=== PATIENT | female | born 1930 | race Two or more races ===

== ENCOUNTER 2016-05-26 12:48 | Observation (INO) | payer MEDICARE, OTHER ==
[~2016-05-26] VITALS: Ht 170.2 cm; Wt 65.0 kg
--- NOTE | 2016-05-26 12:52 | ERA ---
ER Documentation Chief Complaint Date/Time DATE: 05/26/16 TIME: 12:52 Chief Complaint Fall HPI The patient is an 85-year-old female, presenting to the ER because she fell, however she did not remember what happened. She complains of back pain. She was seen by her orthopedist today for left wrist fracture, who sent her to the ER for further evaluation. She complains of vague headache, denies chest pain, dyspnea, abdominal pain, vomiting, dysuria, diarrhea. She does not smoke nor drink. She is a very poor historian and unable to provide much history Past medical history: According to the medication, she has dyslipidemia, Parkinson disease, anxiety, diabetes mellitus Past surgical history: Unable to obtain due to her condition ROS All systems reviewed and are negative except as per history of present illness. Medications Home Meds Reported Medications Clonazepam* (Clonazepam*) 1 Mg Tablet, 1 MG PO DAILY Y for ANXIETY, TAB 05/26/16 Dorzolamide-Timolol* (Cosopt*) 2%-0.5% - 10 Ml Soln, 1 DROP BOTH EYES BID, BOTTLE 05/26/16 Linaclotide (LINZESS) 145 Mcg Capsule, 145 MCG PO BID, #30 CAP 05/26/16 Ramipril (Ramipril) 10 Mg Capsule, 10 MG PO BID, CAP 05/26/16 Pravastatin Sodium* (Pravastatin Sodium*) 20 Mg Tablet, 20 MG PO HS, TAB 05/26/16 Carbidopa/Levodopa (CARBIDOPA-LEVO 10-100 MG ODT) 1 Each Tab.rapdis, 1 TAB PO TID, #90 TAB 05/26/16 Metformin Hcl* (Metformin Hcl*) 500 Mg Tablet, 500 MG PO WITH BREAKFAST, #30 TAB 05/26/16 Fenofibrate Nanocrystallized* (Fenofibrate*) 145 Mg Tablet, 145 MG PO DAILY, TAB 05/26/16 Allergies Allergies: Coded Allergies: No Known Allergy (Unverified , 05/26/16) Physical Exam Vitals Vital Signs Date Time Temp Pulse Resp B/P Pulse Ox O2 Delivery O2 Flow Rate FiO2 05/26/16 12:57 98.2 67 18 144/63 98 Physical Exam Const: No acute distress. Head: Atraumatic. Eyes: Normal Conjunctiva. ENT: Normal External Ears, Nose and Mouth. Neck: Full range of motion. No meningismus. Resp: Clear to auscultation bilaterally. Cardio: Regular rate and rhythm, no murmurs. Abd: Soft, non distended, normal bowel sounds, non tender. Skin: No petechiae or rashes. Back: Vague and mild tenderness at thoracic and lumbar spine, no crepitus Ext: No cyanosis, or edema. Neur: Awake and alert. No focal deficit Psych: Limited due to condition Result Diagram: 05/26/16 1335 05/26/16 1335 Results 24 hrs Laboratory Tests Test 05/26/16 13:35 White Blood Count 8.210^3/ul Red Blood Count 4.5310^6/ul Hemoglobin 13.2g/dl Hematocrit 41.7% Mean Corpuscular Volume 92.1fl Mean Corpuscular Hemoglobin 29.1pg Mean Corpuscular Hemoglobin Concent 31.7g/dl Red Cell Distribution Width 14.6% Platelet Count 28664^3/UL Mean Platelet Volume 11.8fl Neutrophils % 70.4% Lymphocytes % 18.8% Monocytes % 9.3% Eosinophils % 0.9% Basophils % 0.5% Nucleated Red Blood Cells % 0.0/100WBC Neutrophils # 5.810^3/ul Lymphocytes # 1.510^3/ul Monocytes # 0.810^3/ul Eosinophils # 0.110^3/ul Basophils # 0.010^3/ul Nucleated Red Blood Cells # 0.010^3/ul Prothrombin Time 13.0Sec Prothrombin Time Ratio 1.0 INR International Normalized Ratio 0.98 Activated Partial Thromboplast Time 28.6Sec Sodium Level 140mmol/L Potassium Level 4.1mmol/L Chloride Level 109mmol/L Carbon Dioxide Level 23mmol/L Anion Gap 12 Blood Urea Nitrogen 24mg/dl Creatinine 0.64mg/dl Glucose Level 104mg/dl Calcium Level 10.1mg/dl Troponin I < 0.012ng/ml Procedures/MDM EKG: Read by emergency physician Rate/Rhythm: Normal Sinus Rhythm 75 beats/min QRS, ST, T-waves: No ST elevation, sinus arrhythmia, nonspecific T abnormality, prolonged QT Impression: Abnormal EKG [place] [id number] Radiology Main Line: [phone] DIAGNOSTIC IMAGING REPORT Patient: MISAEL PACHECO : 1930 Age: 85 Sex: F MR #: [id number] DOS: 05/26/16 1311 Ordering MD: JENNY JEAN MD Location: E/R Room/Bed: PROCEDURE: CT thoracic spine without contrast. CLINICAL INDICATION: Back pain TECHNIQUE: CT of the thoracic spine without contrast was performed on a multidetector CT scanner, with multiplanar reformats. One or more of the following dose reduction techniques were used: Automated exposure control, adjustment in mA and / or kV according to patient size, use of iterative reconstructive technique. CTDIvol = 18 mGy and DLP = 707 mGy-cm. COMPARISON: None available. FINDINGS: There is a moderate compression deformity of T11 with minimal of the posterior cortex, and minimal compression deformity of the superior endplate of T5. These appear chronic in nature. No definite acute thoracic spine fracture or dislocation is identified. There is exaggeration of the kyphosis of the thoracic spine. Alignment is grossly intact. The rest of the vertebral bodies appear grossly maintained in height. There is generalized osteopenia. There is anterior spondylosis seen at T3-4 through T10-11. There is disk space narrowing at T2-3 to T9-10, more pronounced, moderate - severe at T6-7 through T9-10. There are vacuum disk changes, more notably at T9-10 and T10-11. No significant disk bulge or herniation is seen. Facet arthropathy is seen at T5- 6 through T10-11. No central canal stenosis or foraminal narrowing is identified. There are chronic fractures / post-traumatic deformities of the right 8th through 11th ribs posteriorly. Large hiatal hernia, slightly hyperdense exophytic lesion at the upper pole of the right kidney measuring 1.8 cm which may be a hemorrhagic cyst, atherosclerotic calcifications, partially imaged large cystic lesion in the left lobe of the liver measuring up to approximately 5.5 cm with adjacent punctate calcifications are noted. Also seen are calcified mediastinal node, tiny right upper lobe calcified node/granuloma. IMPRESSION: 1. Chronic-appearing moderate T11, and minimal T5 compression deformities. 2. No definite acute thoracic spine fracture/dislocation. 3. Thoracic spondylosis. 4. Osteopenia. RPTAT: VV .Renato Enciso MD, Date Time Electronically viewed and signed by .Renato Enciso MD, MD on 05/26/2016 15:33 .O/ CC: JENNY JEAN MD [place] [id number] Radiology Main Line: [phone] DIAGNOSTIC IMAGING REPORT Patient: MISAEL PACHECO : 1930 Age: 85 Sex: F MR #: [id number] DOS: 05/26/16 1311 Ordering MD: JENNY JEAN MD Location: E/R Room/Bed: PROCEDURE: CT lumbar spine without contrast. CLINICAL INDICATION: Back pain TECHNIQUE: CT of the lumbar spine without contrast was performed on a multidetector CT scanner, with multiplanar reformats. One or more of the following dose reduction techniques were used: Automated exposure control, adjustment in mA and / or kV according to patient size, use of iterative reconstructive technique. CTDIvol = 21 mGy and DLP = 619 mGy-cm. COMPARISON: None available. FINDINGS: No lumbar spine fracture or dislocation is identified. There is mild upper lumbar dextroconvex scoliosis with preservation of the lordosis of the lumbar spine. Alignment is otherwise intact. The vertebral bodies are maintained in height. Anterior spondylosis is seen at L2-3, L4-5, L5-S1. Partially reimaged is a chronic posterior right 11th rib fracture, and cystic lesion in the left lobe of the liver with adjacent punctate calcification. Atherosclerotic calcifications are noted. T12-L1: The disc is maintained in height. No disk bulge or herniation is seen. There is no central canal stenosis or foraminal narrowing. L1-L2: The disc is maintained in height. There is a small Schmorl node. There is no central canal stenosis or foraminal narrowing. L2-L3: There is disk space narrowing, moderate - severe on the left with vacuum changes. There is posterior disk bulging and ligamentum flavum hypertrophy. No significant central canal stenosis is identified. There is mild bilateral foraminal narrowing. L3-L4: The disc is maintained in height. There is a small Schmorl node. There is posterior disk bulging and ligamentum flavum hypertrophy without significant central canal stenosis or foraminal narrowing identified. L4-L5: There is moderate - severe disk space narrowing and vacuum changes. There is posterior disk bulging and mild facet arthropathy with ligamentum hypertrophy. No significant central canal stenosis is identified . There is mild-moderate right foraminal narrowing. L5-S1: There is posterior disk bulging and mild facet arthropathy. No central canal stenosis is identified. There is mild left foraminal narrowing. IMPRESSION: 1. No lumbar spine fracture/dislocation identified. 2. Lumbar spondylosis with mild dextroconvex lumbar scoliosis. 3. Multilevel foraminal narrowing outlined in detail above. 4. Osteopenia. RPTAT: VV .Renato Enciso MD, MD Date Time Electronically viewed and signed by .Renato Enciso MD, MD on 05/26/2016 15:30 .O/ CC: JENNY JEAN MD [place] [id number] Radiology Main Line: [phone] DIAGNOSTIC IMAGING REPORT Patient: MISAEL PACHECO : 1930 Age: 85 Sex: F MR #: [id number] DOS: 05/26/16 1311 Ordering MD: JENNY JEAN MD Location: E/R Room/Bed: PROCEDURE: CT cervical spine without contrast. CLINICAL INDICATION: Neck pain TECHNIQUE: CT of the cervical spine without contrast was performed on a multidetector CT scanner, with multiplanar reformats. One or more of the following dose reduction techniques were used: Automated exposure control, adjustment in mA and / or kV according to patient size, use of iterative reconstructive technique. CTDIvol = 22 mGy and DLP = 573 mGy-cm. COMPARISON: None available. FINDINGS: There is generalized osteopenia. No cervical spine fracture or dislocation is identified. There is exaggeration of the lordosis of the cervical spine. There is minimal 1 mm retrolisthesis of C3 on C4 and 1 mm anterolisthesis of C7 on T1. Cervical vertebral bodies are grossly maintained in height. There are anterior atlantoaxial joint degenerative changes and anterior spondylosis at C4- 5 through C6-7. Atherosclerotic calcifications are noted. C2-3: There is moderate - severe disk space and posteriorly. There is posterior disk osteophyte. No central canal stenosis is identified . There is facet arthropathy without foraminal narrowing identified. C3-4: There is moderate - severe disk space and posteriorly. There is a posterior disk/osteophyte. Mild central canal stenosis is identified. There are uncovertebral osteophytes and facet arthropathy with mild-moderate right, mild left foraminal narrowing. C4-5: There is moderate - severe disk space narrowing with vacuum changes. There is a posterior disk/osteophyte and ligamentum flavum hypertrophy with mild central canal stenosis identified. There are uncovertebral osteophytes and facet arthropathy with mild-moderate right foraminal narrowing. C5-6: There is severe disk space narrowing, vacuum changes. There is a posterior disk/osteophyte and ligamentum flavum hypertrophy. Mild central canal stenosis is identified. There are uncovertebral osteophytes and facet arthropathy with mild to moderate bilateral foraminal narrowing. C6-7: There is moderate - severe disk space narrowing, vacuum changes. There is a posterior disk/osteophyte and ligamentum flavum hypertrophy. Mild central canal stenosis is identified There are uncovertebral osteophytes and facet arthropathy with mild-moderate right, mild left foraminal narrowing. C7-T1: No disk bulge or herniation is seen. There is facet arthropathy. There is no central canal stenosis or foraminal narrowing. IMPRESSION: 1. No cervical spine fracture/dislocation identified. 2. Cervical spondylosis, with multilevel mild central canal stenoses, and multilevel foraminal narrowing outlined in detail above. 3. Osteopenia. .Renato Enciso MD, Date Time Electronically viewed and signed by .Renato Enciso MD, on 05/26/2016 15:23 .O/ CC: JENNY JEAN MD [place] [address] Radiology Main Line: [phone] DIAGNOSTIC IMAGING REPORT Patient: MISAEL PACHECO : 1930 Age: 85 Sex: F MR #: [id number] DOS: 05/26/16 1311 Ordering MD: JENNY JEAN MD Location: E/R Room/Bed: PROCEDURE: CT Brain without contrast. CLINICAL INDICATION: Syncope TECHNIQUE: CT scan of the brain was performed on a multidetector high- resolution CT scan. Axial imaging was obtained of the brain without contrast administration. Coronal and sagittal reformatted images were obtained from the axial source images. Standard CT scan of the head without contrast protocols were performed. The total exam CTDI equals 43.77 mGy and the total exam DLP equals 720.23 mGy- cm. One or more of the following dose reduction techniques were used: - Automated exposure control. - Adjustment of the mA and/or kV according to patient size. Use of iterative reconstruction technique. COMPARISON: None. FINDINGS: There is a surgical staple line seen along the posterior lateral left scalp. No other foreign bodies. No evidence of calvarial fractures. The ventricular system is normal in size without midline shift. There is moderate generalized cerebral volume loss. There is mild generalized cerebellar volume loss. Negative for intracranial masses hemorrhages or midline shift. There is mild nonspecific periventricular deep white matter changes consistent with chronic microvascular ischemic disease. There is a small air fluid level within the right maxillary sinus consistent with acute sinusitis. Additional mild mucosal thickening involving the right maxillary sinus consistent with chronic sinusitis. Remainder the paranasal sinuses visualized are unremarkable. There is a right mastoiditis. The left mastoid is unremarkable. IMPRESSION: 1. Moderate generalized cerebral and mild generalized cerebral volume loss and mild nonspecific chronic microvascular ischemic disease. 2. Negative for intracranial masses hemorrhages or midline shift. 3. Chronic and acute right maxillary sinusitis. 4. Right mastoiditis. 5. 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 RPTAT:AAJJ Physician Sindi Date Time Electronically viewed and signed by Maria Antonia Sutton Physician on 05/26/2016 14:59 BM/ CC: JENNY JEAN MD MEDICAL MAKING DECISION: The patient is a 85-year-old female, presenting to the ER because of acute syncope of unclear etiology, acute back pain most likely due to the fall. The differential diagnoses considered include but are not limited to bradyarrhythmia, tachyarrhythmias, aortic outflow obstruction, neurogenic including subarachnoid hemorrhage, orthostatic hypotension and all of its causes, hypoglycemia, dysautonomia, medications, vertebral fracture/ sprain/contusion. Departure Diagnosis: Primary Impression: Syncope Additional Impression: Back pain Condition: Stable Comments I discussed the findings with the patient. I discussed the patient with the hospitalist Dr. Duvall who was made aware of the lab, the treatment, the patient condition. The patient is admitted to 3:50 PM telemetry for 24 hours observation JENNY JEAN MD May 26, 2016 12:52
[2016-05-26 13:41] LABS: ADD SCAN DIFF NO
[2016-05-26 13:46] LABS: BASOPHILS % 0.5 % (0.0-2.0); EOSINOPHILS # 0.1 10^3/ul (0.0-0.5); EOSINOPHILS % 0.9 % (0.0-7.0); HEMATOCRIT 41.7 % (37.0-47.0); HEMOGLOBIN 13.2 g/dl (12.0-16.0); LYMPHOCYTES # 1.5 10^3/ul (0.8-2.9); LYMPHOCYTES % 18.8 % (15.0-51.0); MEAN CORPUSCULAR HEMOGLOBIN 29.1 pg (29.0-33.0); MEAN CORPUSCULAR HGB CONC 31.7 g/dl (32.0-37.0); MEAN CORPUSCULAR VOLUME 92.1 fl (82.0-101.0); MEAN PLATELET VOLUME 11.8 fl (7.4-10.4); MONOCYTE # 0.8 10^3/ul (0.3-0.9); MONOCYTES % 9.3 % (0.0-11.0); NEUTROPHIL # 5.8 10^3/ul (1.6-7.5); NEUTROPHILS % 70.4 % (39.0-77.0); PLATELET COUNT 177 10^3/UL (140-415); RED BLOOD COUNT 4.53 10^6/ul (4.20-5.40); RED CELL DISTRIBUTION WIDTH 14.6 % (11.5-14.5); WHITE BLOOD COUNT 8.2 10^3/ul (4.8-10.8)
[2016-05-26 13:57] LABS: INR 0.98; PARTIAL THROMBOPLASTIN TIME 28.6 Sec (25.0-35.0)
--- NOTE | 2016-05-26 15:00 | RADRPT ---
PROCEDURE: CT Brain without contrast. CLINICAL INDICATION: Syncope TECHNIQUE: CT scan of the brain was performed on a multidetector high-resolution CT scan. Axial im aging was obtained of the brain without contrast administration. Coronal and sagittal reformatted i mages were obtained from the axial source images. Standard CT scan of the head without contrast prot ocols were performed. The total exam CTDI equals 43.77 mGy and the total exam DLP equals 720.23 mGy-cm. One or more of the following dose reduction techniques were used: - Automated exposure control. - Adjustment of the mA and/or kV according to patient size. Use of iterative reconstruction technique. COMPARISON: None. FINDINGS: There is a surgical staple line seen along the posterior lateral left scalp. No other foreign barbara s. No evidence of calvarial fractures. The ventricular system is normal in size without midline sh ift. There is moderate generalized cerebral volume loss. There is mild generalized cerebellar volu me loss. Negative for intracranial masses hemorrhages or midline shift. There is mild nonspecific periventricular deep white matter changes consistent with chronic microvascular ischemic disease. T here is a small air fluid level within the right maxillary sinus consistent with acute sinusitis. A dditional mild mucosal thickening involving the right maxillary sinus consistent with chronic sinusi tis. Remainder the paranasal sinuses visualized are unremarkable. There is a right mastoiditis. T he left mastoid is unremarkable. IMPRESSION: 1. Moderate generalized cerebral and mild generalized cerebral volume loss and mild nonspecific chr onic microvascular ischemic disease. 2. Negative for intracranial masses hemorrhages or midline shift. 3. Chronic and acute right maxillary sinusitis. 4. Right mastoiditis. 5. 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 RPTAT:AAJJ Physician Sindi Date Time Electronically viewed and signed by Physician Sindi on 05/26/2016 14:59 BM/
--- NOTE | 2016-05-26 15:23 | RADRPT ---
PROCEDURE: CT cervical spine without contrast. CLINICAL INDICATION: Neck pain TECHNIQUE: CT of the cervical spine without contrast was performed on a multidetector CT scanner, w ith multiplanar reformats. One or more of the following dose reduction techniques were used: Automa rob exposure control, adjustment in mA and / or kV according to patient size, use of iterative recon structive technique. CTDIvol = 22 mGy and DLP = 573 mGy-cm. COMPARISON: None available. FINDINGS: There is generalized osteopenia. No cervical spine fracture or dislocation is identified. There is exaggeration of the lordosis of the cervical spine. There is minimal 1 mm retrolisthesis of C3 on C4 and 1 mm anterolisthesis of C7 on T1. Cervical vertebral bodies are grossly maintained in height . There are anterior atlantoaxial joint degenerative changes and anterior spondylosis at C4-5 thro ugh C6-7. Atherosclerotic calcifications are noted. C2-3: There is moderate - severe disk space and posteriorly. There is posterior disk osteophyte. N o central canal stenosis is identified . There is facet arthropathy without foraminal narrowing julio cesar ntified. C3-4: There is moderate - severe disk space and posteriorly. There is a posterior disk/osteophyte. Mild central canal stenosis is identified. There are uncovertebral osteophytes and facet arthropat hy with mild-moderate right, mild left foraminal narrowing. C4-5: There is moderate - severe disk space narrowing with vacuum changes. There is a posterior dis k/osteophyte and ligamentum flavum hypertrophy with mild central canal stenosis identified. There a re uncovertebral osteophytes and facet arthropathy with mild-moderate right foraminal narrowing. C5-6: There is severe disk space narrowing, vacuum changes. There is a posterior disk/osteophyte an d ligamentum flavum hypertrophy. Mild central canal stenosis is identified. There are uncovertebra l osteophytes and facet arthropathy with mild to moderate bilateral foraminal narrowing. C6-7: There is moderate - severe disk space narrowing, vacuum changes. There is a posterior disk/o steophyte and ligamentum flavum hypertrophy. Mild central canal stenosis is identified There are un covertebral osteophytes and facet arthropathy with mild-moderate right, mild left foraminal narrowin g. C7-T1: No disk bulge or herniation is seen. There is facet arthropathy. There is no central canal stenosis or foraminal narrowing. IMPRESSION: 1. No cervical spine fracture/dislocation identified. 2. Cervical spondylosis, with multilevel mild central canal stenoses, and multilevel foraminal narr owing outlined in detail above. 3. Osteopenia. .Renato Enciso MD, Date Time Electronically viewed and signed by .Renato Enciso MD, MD on 05/26/2016 15:23 .O/
[2016-05-26 15:27] LABS: CHLORIDE 109 mmol/L (97-110); POTASSIUM 4.1 mmol/L (3.5-5.1); SODIUM 140 mmol/L (135-144)
[2016-05-26 15:30] LABS: ANION GAP 12 (8-16); BLOOD UREA NITROGEN 24 mg/dl (7-20); CARBON DIOXIDE 23 mmol/L (21-31); CREATININE 0.64 mg/dl (0.44-1.00); GLUCOSE 104 mg/dl (70-220)
--- NOTE | 2016-05-26 15:30 | RADRPT ---
PROCEDURE: CT lumbar spine without contrast. CLINICAL INDICATION: Back pain TECHNIQUE: CT of the lumbar spine without contrast was performed on a multidetector CT scanner, wi th multiplanar reformats. One or more of the following dose reduction techniques were used: Automat ed exposure control, adjustment in mA and / or kV according to patient size, use of iterative recons tructive technique. CTDIvol = 21 mGy and DLP = 619 mGy-cm. COMPARISON: None available. FINDINGS: No lumbar spine fracture or dislocation is identified. There is mild upper lumbar dextroconvex scol iosis with preservation of the lordosis of the lumbar spine. Alignment is otherwise intact. The ve rtebral bodies are maintained in height. Anterior spondylosis is seen at L2-3, L4-5, L5-S1. Partia lly reimaged is a chronic posterior right 11th rib fracture, and cystic lesion in the left lobe of t he liver with adjacent punctate calcification. Atherosclerotic calcifications are noted. T12-L1: The disc is maintained in height. No disk bulge or herniation is seen. There is no central canal stenosis or foraminal narrowing. L1-L2: The disc is maintained in height. There is a small Schmorl node. There is no central canal stenosis or foraminal narrowing. L2-L3: There is disk space narrowing, moderate - severe on the left with vacuum changes. There is p osterior disk bulging and ligamentum flavum hypertrophy. No significant central canal stenosis is i dentified. There is mild bilateral foraminal narrowing. L3-L4: The disc is maintained in height. There is a small Schmorl node. There is posterior disk bu lging and ligamentum flavum hypertrophy without significant central canal stenosis or foraminal narr owing identified. L4-L5: There is moderate - severe disk space narrowing and vacuum changes. There is posterior disk bulging and mild facet arthropathy with ligamentum hypertrophy. No significant central canal stenos is is identified . There is mild-moderate right foraminal narrowing. L5-S1: There is posterior disk bulging and mild facet arthropathy. No central canal stenosis is julio cesar ntified. There is mild left foraminal narrowing. IMPRESSION: 1. No lumbar spine fracture/dislocation identified. 2. Lumbar spondylosis with mild dextroconvex lumbar scoliosis. 3. Multilevel foraminal narrowing outlined in detail above. 4. Osteopenia. RPTAT: VV .Renato Enciso MD, Date Time Electronically viewed and signed by .Renato Enciso MD, on 05/26/2016 15:30 .O/
[2016-05-26 15:31] LABS: CALCIUM 10.1 mg/dl (8.4-10.2)
--- NOTE | 2016-05-26 15:33 | RADRPT ---
PROCEDURE: CT thoracic spine without contrast. CLINICAL INDICATION: Back pain TECHNIQUE: CT of the thoracic spine without contrast was performed on a multidetector CT scanner, w ith multiplanar reformats. One or more of the following dose reduction techniques were used: Automa rob exposure control, adjustment in mA and / or kV according to patient size, use of iterative recon structive technique. CTDIvol = 18 mGy and DLP = 707 mGy-cm. COMPARISON: None available. FINDINGS: There is a moderate compression deformity of T11 with minimal of the posterior cortex, and minimal compression deformity of the superior endplate of T5. These appear chronic in nature. No definite acute thoracic spine fracture or dislocation is identified. There is exaggeration of the kyphosis o f the thoracic spine. Alignment is grossly intact. The rest of the vertebral bodies appear grossly maintained in height. There is generalized osteopenia. There is anterior spondylosis seen at T3-4 through T10-11. There is disk space narrowing at T2-3 to T9-10, more pronounced, moderate - severe at T6-7 through T9-10. There are vacuum disk changes, more notably at T9-10 and T10-11. No signif icant disk bulge or herniation is seen. Facet arthropathy is seen at T5-6 through T10-11. No centr al canal stenosis or foraminal narrowing is identified. There are chronic fractures / post-traumati c deformities of the right 8th through 11th ribs posteriorly. Large hiatal hernia, slightly hyperdense exophytic lesion at the upper pole of the right kidney measuring 1.8 cm which may be a he morrhagic cyst, atherosclerotic calcifications, partially imaged large cystic lesion in the left lob e of the liver measuring up to approximately 5.5 cm with adjacent punctate calcifications are noted. Also seen are calcified mediastinal node, tiny right upper lobe calcified node/granuloma. IMPRESSION: 1. Chronic-appearing moderate T11, and minimal T5 compression deformities. 2. No definite acute thoracic spine fracture/dislocation. 3. Thoracic spondylosis. 4. Osteopenia. RPTAT: VV .Renato Enciso MD, Date Time Electronically viewed and signed by .Renato Enciso MD, MD on 05/26/2016 15:33 .O/
[2016-05-26 15:48] LABS: TROPONIN-I < 0.012 ng/ml (0.00-0.12)
[2016-05-26] MEDS ORDERED: FENO145T19 PO (16:01)
[2016-05-26] MEDS ORDERED: METF500T4 PO (16:02)
[2016-05-26] MEDS ORDERED: CARB1TAB45 PO (16:03)
[2016-05-26] MEDS ORDERED: RAMI10CA48 PO (16:04)
[2016-05-26] MEDS ORDERED: PRAV20TA63 PO (16:04)
[2016-05-26] MEDS ORDERED: DORZ10DR22 BOTH EYES (16:05)
[2016-05-26] MEDS ORDERED: LINA145C PO (16:05)
[2016-05-26] MEDS ORDERED: CLON1TAB3 PO (16:06)
[2016-05-26] MEDS ORDERED: BISACODYL (EC) 5 MG TAB PO PRN (18:00)
[2016-05-26] MEDS ORDERED: NACL 0.9% 3 ML SYG IV SCH (18:00)
[2016-05-26] MEDS ORDERED: DOCUSATE SODIUM 100 MG CAP PO PRN (18:00)
[2016-05-26] MEDS ORDERED: ACETAMINOPHEN 325 MG TAB PO PRN (18:00)
[2016-05-26] MEDS ORDERED: NITROGLYCERIN (SL) 0.4 MG TAB SL PRN (18:00)
[2016-05-26] MEDS ORDERED: ONDANSETRON 4 MG TAB PO PRN (18:00)
--- NOTE | 2016-05-26 18:40 | RADRPT ---
PROCEDURE: US Carotids. CLINICAL INDICATION: Syncope TECHNIQUE: Multiple sonographic of the carotid arteries were obtained utilizing leos scale imaging . Color and Doppler imaging was performed. The images were reviewed on a PACS workstation. COMPARISON: No prior studies are available for comparison. FINDINGS: Location Right Left CCA 57 cm/sec 63 cm/sec Prox ICA 54 cm/sec 43 cm/sec Mid ICA 45 cm/sec 45 cm/sec Dist ICA 50 cm/sec 51 cm/sec ECA 73 cm/sec 55 cm/sec ICA/CCA 0.8 0.8 Antegrade flow is seen within the vertebral arteries bilaterally. No significant plaque is seen with in the carotid system bilaterally. No hemodynamically significant stenosis or occlusion is identifi ed. IMPRESSION: 1. No evidence for hemodynamically significant stenosis - validated velocity measurements with angio graphic measurements, velocity criteria are extrapolated from diameter data as defined by the Societ y of Radiologists in Ultrasound Consensus Conference Radiology 2003; 229;340-346. This study does i ndirectly reference the measurement of the distal ICA diameter as the denominator for stenosis measu rement. 2. Antegrade flow seen within the vertebral arteries bilaterally. SRU Consensus Conference Criteria for the Diagnosis of Carotid Artery Stenosis Degree of Stenosis, % ICA PSV, cm/sec Plaque Estimate, % ICA/CCA PSV Ratio Normal <125 None <2.0 <50 <125 <50 <2.0 50 69 125-230 >50 2.0-4.0 >70 but less than near occlusion >230 >50 <4.0 Near occlusion High, low, or undetectable Visible Variable Total occlusion Undetectable Visible, no detectable lumen Not applicable *Cartoid artery stenosis: leos-scale and Doppler US diagnosis. Society of Radiologists in Ultrasound Consensus Conference. Radiology 2003; 229: 340-346 RPTAT: VV .Jax Guzman MD, Date Time Electronically viewed and signed by .Jax Guzman MD, on 05/26/2016 18:40 .A/
[2016-05-26] MEDS: 1/2 NS + KCL 20 MEQ 1,000 ML IV SCH (20:16)
[2016-05-26 20:34] VITALS: TEMP 98
[2016-05-26] MEDS ORDERED: NON-FORMULARY/PATIENT OWN MED (Ramipril 10 MG) PO SCH (21:00)
[2016-05-26] MEDS ORDERED: LEVODOPA PO SCH (21:00)
[2016-05-26] MEDS ORDERED: NON-FORMULARY/PATIENT OWN MED (Pravastatin Sodium* 20 MG) PO SCH (21:00)
[2016-05-26] MEDS ORDERED: CARBIDOPA PO SCH (21:00)
[2016-05-26] MEDS ORDERED: NON-FORMULARY/PATIENT OWN MED (Linaclotide (Linzess) 145 MCG) PO SCH (21:00)
--- NOTE | 2016-05-26 22:54 | CONS ---
DATE OF ADMISSION: 05/26/2016 DATE OF CONSULTATION: 05/26/2016 TYPE OF CONSULTATION: Cardiology. REFERRING PHYSICIAN: Dr. Ponce REASON FOR CONSULTATION: Possible syncope. CHIEF COMPLAINT: Hand pain and back pain. HISTORY OF PRESENT ILLNESS: Thank you for this referral. History obtained from the patient who is a poor historian, review of the chart, review of the old chart. This an unfortunate 85-year-old [place] female with history of diabetes, dyslipidemia, possibly hypertension who was seen in [facility] because of her hand pain and fracture. The patient does not remember the event. ____ it was dark and she fell. It is unclear if she actually passed out or not. At this point, she said she just w ants to sleep. PAST MEDICAL HISTORY: History of diabetes that she only aware of. Per her medication, she has hist ory of dyslipidemia, Parkinson disease, hypertension as well. Apparently, she has some sort of hear t disorder, as she is supposed to see a mobile crane operator, but she does not know who and why. MEDICATIONS AT HOME: Per chart. She is on: 1. ____ eyedrops. 2. Ramipril. 3. Pravastatin. 4. Carbidopa/levodopa. 5. Metformin. 6. Fenofibrate. ALLERGIES: NO REPORTED ALLERGIES. SOCIAL HISTORY: Does not smoke or drink. FAMILY HISTORY: No reported coronary artery disease. REVIEW OF SYSTEMS: She denied all other except for above-mentioned. She had left hand pain as well . PHYSICAL EXAMINATION: VITAL SIGNS: Temperature 98, heart rate of 72, blood pressure 155/78, respiration rate of 23, satur ating 97%. HEENT: Normocephalic, atraumatic. Elderly female. Eyes are reactive. NECK: Supple. No JVD. CARDIOVASCULAR: Regular rate and rhythm. Systolic ejection murmur radiating to the carotids. PULMONARY: No wheezes heard. GASTROINTESTINAL: Soft, nontender. EXTREMITIES: Trivial edema. NEUROLOGIC: Awake, responds appropriately. PSYCHIATRIC: Appears to be calm and pleasant. LABORATORY: Head CT shows negative for masses ____ midline shift. EKG showed normal sinus rhythm, nonspecific ST-T abnormalities. Poor R-wave progression. WBC of 8.2, hemoglobin 13.2, platelet 177 . Sodium 140, potassium 4.1, BUN of 24, creatinine 0.64, glucose 104. Troponin less than 0.012. ASSESSMENT AND PLAN: 1. Possible syncope. 2. Hypertension. 3. Rule out aortic stenosis. 4. Diabetes. 5. Dyslipidemia. 6. Memory impairment. RECOMMENDATIONS: We will place the patient on telemetry monitoring closely to rule out evidence of significant arrhythmias. Echocardiogram has been ordered to be done. Diabetic management as per in ternal medicine. Further recommendation after more information including echocardiogram is availabl e. Dictated By: KEON MERRITT MD AV/AMBROSIO Conf#: [id number] DID#: [id number] CC: JOSEY PONCE MD;*End*
[2016-05-26] MEDS ORDERED: LORAZEPAM 0.5 MG TAB PO PRN (23:00)
[2016-05-26] MEDS: CARBIDOPA/LEVODOPA (10/100) TAB PO SCH (23:12)
[2016-05-26] MEDS: BENAZEPRIL 40 MG TAB PO SCH (23:12)
[2016-05-26] MEDS: ATORVASTATIN 10 MG TAB PO SCH (23:12)
[2016-05-26] MEDS: DORZOLAMIDE/TIMOLOL 10 ML OPH BOTH EYES SCH (23:19)
[2016-05-27] VITALS (12 sets, daily range): BP systolic 102–167; BP diastolic 54–85; PULSE 53–72; RESP 18–20; Ht 170.2 cm; Wt 65.0 kg
--- NOTE | 2016-05-27 01:57 | HP ---
DATE OF ADMISSION: 05/26/2016 CONSULTANTS: 1. Neurology. 2. Cardiology. CHIEF COMPLAINT: Frequent falls. HISTORY OF PRESENT ILLNESS: This is an 85-year-old female with past medical history of parkinsonian , anxiety, dyslipidemia, diabetes mellitus, hypertension, who recently had a mechanical fall and had a wrist fracture which she has been followed up with Dr. Hodgson as outpatient and today, the patie nt was about to remove her cast from her left arm when she stated to Dr. Hodgson that she had anothe r fall yesterday; therefore, she was sent to [facility] Emergency Room for evaluation. Her CT of the brain showed mild generalized cerebral volume loss, mild nonspecific chronic microvascula r ischemic disease, negative for intracranial mass, hemorrhage or midline shift, chronic and acute r ight maxillary sinusitis, right mastoiditis. Surgical staple line along the left scalp, but no unde rlying fracture. Cervical spine showed no cervical spine fracture or dislocation identified ____ sp ondylosis with multiple mild central canal stenosis and multiple foraminal narrowing outlined, osteo penia. Thoracic spine showed chronic appearing moderate T11 and minimal T5 compression deformities, no definite acute thoracic spine fracture or dislocation ____ spondylosis, osteopenia and her lumba r CT showed no lumbar spine fracture or dislocation identified. Lumbar spondylosis with mild dextro convex lumbar scoliosis, multilevel foraminal narrowing outline and osteopenia. The patient was tr eated with pain medication. At this time, the patient is lying in bed comfortably without any distr ess. She is awake, alert. She is able to follow commands. Currently my information was obtained f rom her daughter and ER doctor. The patient is not able to provide not much information secondary t o language barrier and her parkinsonian. PAST MEDICAL AND SURGICAL HISTORY: As above per HPI. MEDICATIONS: 1. Sinemet. 2. Clonazepam. 3. Cosopt. 4. Fenofibrate. 5. Linzess. 6. Metformin. 7. Pravastatin. 8. Verapamil. ALLERGIES: NO KNOWN DRUG ALLERGIES. FAMILY HISTORY: Noncontributory secondary to advanced age. SOCIAL HISTORY: She lives at home with her daughter. REVIEW OF SYSTEMS: Denies any headache, dizziness, lightheadedness. Positive for frequent falls. No chest pain, palpitations, edema, orthopnea. No change in visual acuity, diplopia, photophobia. Bilateral lower extremity weakness at times. No frequent falls as stated above. No recent travel h istory. No sick contact. PHYSICAL EXAMINATION: VITAL SIGNS: Temperature 98.2, pulse 67, respiration 18, blood pressure 144/63, oxygen saturation 9 8% in room air. GENERAL APPEARANCE: The patient is lying in the bed comfortably without any acute distress. She is awake, alert, oriented. She is able to answer my questions properly. EYES, EARS, NOSE, THROAT: Conjunctivae and lids are normal. Pupils are normal. Extraocular normal . Hearing grossly. Lips and tongue normal. Oral mucosa is moist. NECK: Supple. Trachea is midline. No lymphadenopathy. RESPIRATORY: Respiratory effort is normal. Clear to auscultation bilaterally. CARDIOVASCULAR: Normal S1, S2. Regular rhythm and rate. No murmur, no bruits, no edema. Peripher al pulses, radial pulses palpable. Cap refill is normal. CHEST: Normal expansion of thorax during inspiration. CARDIOVASCULAR: Normal S1, S2. Regular rhythm and rate. Positive for II/ murmur at the apex. N o gallop. THORAX: Normal expansion of thorax during inspiration. GASTROINTESTINAL: Abdomen is soft, nontender, not distended. Bowel sounds present. No guarding, n o rebound. GENITOURINARY: Deferred. MUSCULOSKELETAL: Upper and lower extremities within normal limits. Full range of motion. NEUROLOGIC: Cranial nerves II through XII shows grossly. She is awake, alert. She is oriented. LABORATORY WORK: Sodium 140, potassium 4.1, chloride 109, bicarbonate 23, BUN 24, creatinine 0.64, glucose 104, calcium 10.1. Troponin negative. WBC 8.3, hemoglobin 13.3, hematocrit 41.7, platelets 177. EKG showed sinus rhythm with no ST elevation, sinus arrhythmia and nonspecific T-wave abnorma lity, prolonged QT. ASSESSMENT AND PLAN 1. Frequent falls. This is likely secondary to her history of parkinsonian. Neurology has been co nsulted. We will obtain physical therapy, occupational therapy eval and treat if CT of the brain do es not show any acute finding. 2. Recent left wrist fracture. The patient has been followed by Dr. Hodgosn as outpatient. 3. Essential hypertension, well controlled on verapamil. 4. Dyslipidemia, continue fenofibrate and statin. 5. Diabetes mellitus. Continue metformin. 6. Frequent falls. The patient will obtain physical therapy and occupational therapy evaluate and treat. I strongly believe the patient will benefit from home health when she is discharged to [facility] physical therapy at her residence. She also may benefit from inpatient acute rehabilitation sta tus post this course of hospitalization. We will continue to monitor patient closely. Further recommendations, management and treatment as p er clinical course. Dictated By: JOSEY PARRA/AMBROSIO Conf#: [id number] DID#: [id number]
[2016-05-27] MEDS ORDERED: [UNRECOGNIZED DRUG - OTHER] XX SCH (08:00)
[2016-05-27] MEDS ORDERED: LINACLOTIDE XX SCH (08:00)
[2016-05-27] MEDS: DORZOLAMIDE/TIMOLOL 10 ML OPH BOTH EYES SCH ×2 (08:32→20:39)
[2016-05-27] MEDS: ASPIRIN 81 MG TAB PO SCH (08:32)
[2016-05-27] MEDS: metFORMIN 500 MG TAB PO SCH (08:32)
[2016-05-27] MEDS: CARBIDOPA/LEVODOPA (10/100) TAB PO SCH ×3 (08:32→20:37)
[2016-05-27] MEDS ORDERED: GLUCOSE GEL 15 GRAM TUBE PO PRN ×2 (09:30)
[2016-05-27] MEDS ORDERED: GLUCAGON 1 MG INJ IM PRN (09:30)
[2016-05-27] MEDS ORDERED: DEXTROSE 50% 50 ML SYRINGE IV PRN ×2 (09:30)
[2016-05-27] MEDS ORDERED: GLUCOSE GEL 15 GRAM TUBE BUCCAL PRN (09:30)
[2016-05-27 09:52] LABS: ADD SCAN DIFF NO
[2016-05-27 09:57] LABS: BASOPHILS % 0.6 % (0.0-2.0); EOSINOPHILS # 0.2 10^3/ul (0.0-0.5); EOSINOPHILS % 2.3 % (0.0-7.0); HEMATOCRIT 40.6 % (37.0-47.0); HEMOGLOBIN 12.8 g/dl (12.0-16.0); LYMPHOCYTES # 1.1 10^3/ul (0.8-2.9); LYMPHOCYTES % 15.4 % (15.0-51.0); MEAN CORPUSCULAR HEMOGLOBIN 29.4 pg (29.0-33.0); MEAN CORPUSCULAR HGB CONC 31.5 g/dl (32.0-37.0); MEAN CORPUSCULAR VOLUME 93.1 fl (82.0-101.0); MEAN PLATELET VOLUME 11.2 fl (7.4-10.4); MONOCYTE # 0.5 10^3/ul (0.3-0.9); NEUTROPHIL # 5.2 10^3/ul (1.6-7.5); NEUTROPHILS % 74.4 % (39.0-77.0); PLATELET COUNT 169 10^3/UL (140-415); RED BLOOD COUNT 4.36 10^6/ul (4.20-5.40); RED CELL DISTRIBUTION WIDTH 14.1 % (11.5-14.5)
[2016-05-27 10:09] LABS: CHOL/HDL RATIO 3.2 RATIO
[2016-05-27 10:10] LABS: CALCIUM 9.4 mg/dl (8.4-10.2); CREATININE 0.68 mg/dl (0.44-1.00); MAGNESIUM 1.7 mg/dl (1.7-2.5)
[2016-05-27] MEDS: FENOFIBRATE 145 MG TAB PO SCH (10:18)
[2016-05-27] MEDS: 1/2 NS + KCL 20 MEQ 1,000 ML IV SCH (10:18)
[2016-05-27] MEDS: BENAZEPRIL 40 MG TAB PO SCH ×2 (10:18→21:00)
--- NOTE | 2016-05-27 10:25 | CONS ---
Date/Time of Note Date/Time of Note DATE: 05/27/16 TIME: 10:17 Assessment/Plan Assessment/Plan Chief Complaint/Hosp Course 85 y/o F with Parkinson's disease currently managed on Sinemet admitted with frequent falls secondary to advanced Parkinson's. -continue current medications as dosed for Parkinson's -speech therapy evaluation to evaluate for dysphagia and adjust diet appropriately -outpatient physical therapy, home health aide planned to help manage ADL at home -continue to follow with neurologist as outpatient for management of Parkinson's no further inpatient neurologic work up planned Problems: Consultation Date/Type/Reason Admit Date/Time May 26, 2016 at 15:51 Date of Consultation: May 27, 2016 Type of Consultation: Neurology Reason for Consultation frequent falls, Parkinson's disease Referring Provider: JOSEY PONCE MD Hx of Present Illness 85 year old female with history of advanced Parkinson's disease, DM, HTN, HLD with frequent mechanical falls with recent left wrist fracture saw her outpatient physician to remove her cast when she stated she had another fall and was sent to the ER for evaluation. Head CT showed generalized atrophy, non specific microvascular changes, no acute changes.Spine imaging showed chronic degenerative changes, T5 minimal compression deformity, moderate T11 compression deformity, no definite fracture, no dislocation. She has no complaints at this time, compliant with her Parkinson's medications and followed by a neurologist affiliated with [facility]. denies complaints Past Medical History as per [facility] Social History Smoking Status: Never smoker Exam/Review of Systems Vital Signs Vitals Vital Signs Date Time Temp Pulse Resp B/P Pulse Ox O2 Delivery O2 Flow Rate FiO2 05/27/16 08:26 98.1 64 18 167/63 99 05/27/16 02:00 Room Air Intake and Output 05/26/16 05/26/16 05/27/16 15:00 23:00 07:00 Intake Total 540 ml Balance 540 ml Exam awake and alert attentive oriented to self difficult to assess further information due to language barrier slow speech, slowed responses no neglect CN: SIMBA, VFF, blinks to threat no facial asymmetry tongue midline masked facies Motor: limited strength provided throughout no obvious drift strength atleast 3/ 5 in all extremities cogwheeling increased tone Reflexes 3+ UE, 2+ KJ trace AJ toes withdraw to tactile stimulation Coordination uncooperative gait not tested Results Result Diagram: 05/27/16 0940 05/27/16 0940 Results 24 hrs Laboratory Tests Test 05/26/16 13:35 05/27/16 07:48 05/27/16 09:24 05/27/16 09:40 White Blood Count 8.2 7.0 Red Blood Count 4.53 4.36 Hemoglobin 13.2 12.8 Hematocrit 41.7 40.6 Mean Corpuscular Volume 92.1 93.1 Mean Corpuscular Hemoglobin 29.1 29.4 Mean Corpuscular Hemoglobin Concent 31.7 L 31.5 L Red Cell Distribution Width 14.6 H 14.1 Platelet Count 177 169 Mean Platelet Volume 11.8 H 11.2 H Neutrophils % 70.4 74.4 Lymphocytes % 18.8 15.4 Monocytes % 9.3 7.0 Eosinophils % 0.9 2.3 Basophils % 0.5 0.6 Nucleated Red Blood Cells % 0.0 0.0 Neutrophils # 5.8 5.2 Lymphocytes # 1.5 1.1 Monocytes # 0.8 0.5 Eosinophils # 0.1 0.2 Basophils # 0.0 0.0 Nucleated Red Blood Cells # 0.0 0.0 Prothrombin Time 13.0 Prothrombin Time Ratio 1.0 INR International Normalized Ratio 0.98 Activated Partial Thromboplast Time 28.6 Sodium Level 140 136 Potassium Level 4.1 4.0 Chloride Level 109 106 Carbon Dioxide Level 23 26 Anion Gap 12 8 Blood Urea Nitrogen 24 H 21 H Creatinine 0.64 0.68 Glucose Level 104 189 Calcium Level 10.1 9.4 Troponin I < 0.012 Bedside Glucose 116 Triglycerides Level 122 Cholesterol Level 200 LDL Cholesterol, Calculated 115 HDL Cholesterol 61 Cholesterol/HDL Ratio 3.2 Magnesium Level 1.7 Thyroid Stimulating Hormone (TSH) Pending Medications Medications Current Medications Dorzolamide/ Timolol (Cosopt) 1 drop BID BOTH EYES Last administered on 08:32; Admin Dose 1 DROP; Start 05/26/16 at 21:00 Fenofibrate (Tricor) 145 mg DAILY PO ; Start 05/27/16 at 09:00 Miscellaneous Information 145 mcg 145 mcg BID PO ; Start 05/26/16 at 21:00; Status UNV Potassium Chloride/Sodium Chloride (1/2 NS + KCl 20 Meq) 1,000 ml @ 60 mls/hr [id number] IV Last administered on 05/26/16 20:16; Admin Dose 60 MLS/HR; Start 05/26/16 at 17:51 Ondansetron HCl (Zofran Tab) 4 mg Q6H PRN PO NAUSEA AND/OR VOMITING; Start 05/26 at 18:00 Aspirin (Aspirin) 81 mg DAILY PO Last administered on 05/27/16 08:32; Admin Dose 81 MG; Start 05/27/16 at 09:00 Nitroglycerin (Nitroglycerin (Sl Tab) 0.4 Mg) 1 tab Q5M PRN SL CHEST PAIN; Start 05/26/16 at 18:00 Acetaminophen (Tylenol Tab) 650 mg Q6H PRN PO PAIN LEVEL 1-3 OR FEVER; Start at 18:00 Docusate Sodium (Colace) 100 mg Q12H PRN PO CONSTIPATION; Start 05/26/16 at 18: 00 Bisacodyl (Dulcolax) 5 mg DAILY PRN PO CONSTIPATION; Start 05/26/16 at 18:00 Carbidopa/Levodopa (Sinemet (10/ )) 1 tab TID PO Last administered on 08:32; Admin Dose 1 TAB; Start 05/26/16 at 21:00 Atorvastatin Calcium (Lipitor) 10 mg DAILY@21 PO Last administered on 05/26/16 23:12; Admin Dose 10 MG; Start 05/26/16 at 21:00 Benazepril HCl (Lotensin) 40 mg BID PO Last administered on 05/26/16 23:12; Admin Dose 40 MG; Start 05/26/16 at 21:00 Lorazepam (Ativan) 0.25 mg Q4 PRN PO AGITATION/ANXIETY Last administered on 05/26 23:12; Admin Dose 0.25 MG; Start 05/26/16 at 23:00 Miscellaneous Information (*Order Clarification Bulletin) LINZESS IS NON FORMULARY...PLEASE CONSIDER AN OR... Q8H XX ; Start 05/27/16 at 08:00 Miscellaneous Information 1 ea NOTE XX ; Start 05/27/16 at 09:30 Glucose (Glutose) 15 gm Q15M PRN PO DECREASED GLUCOSE; Start 05/27/16 at 09:30 Glucose (Glutose) 22.5 gm Q15M PRN PO DECREASED GLUCOSE; Start 05/27/16 at 09:30 Dextrose (D50w Syringe) 25 ml Q15M PRN IV DECREASED GLUCOSE; Start 05/27/16 at 09:30 Dextrose (D50w Syringe) 50 ml Q15M PRN IV DECREASED GLUCOSE; Start 05/27/16 at 09:30 Glucagon (Glucagen) 1 mg Q15M PRN IM DECREASED GLUCOSE; Start 05/27/16 at 09:30 Glucose (Glutose) 15 gm Q15M PRN BUCCAL DECREASED GLUCOSE; Start 05/27/16 at 09: 30 EVERETTE DAVENPORT MD May 27, 2016 10:25
--- NOTE | 2016-05-27 11:13 | RADRPT ---
Echocardiogram Report Patient Name: MISAEL PACHECO Gender: Female Date: 1930 Study Date: 27-May-2016 Server Systems Administrator: Pamela Mckeon [facility] Location: [id number] Ref. Physician: KEON ARNOLD Quality: Adequate Procedures: Transthoracic echocardiogram with complete 2D, M-Mode, and doppler examination. Indications: Syncope. 2D/M Mode Doppler Measurement Value Normal Ranges Measurement Value Normal Ranges LVIDd 2D 4.1 3.5 - 5.6 cm ASHLY Vmax 1.1 cm2 LVIDs 2D 2.9 2.1 - 4.1 cm ASHLY VTI 1.1 cm2 LVPWd 2D 1.3 0.6 - 1.1 cm AV Mean Jair 2.5 m/sec IVSd 2D 1.3 0.6 - 1.1 cm AV Mean PG 29.1 mmHg AoR Diam 2D 2.4 2.0 - 3.7 cm AV Peak Jair 3.4 m/sec EDV 2D 74.1 cm3 AV Peak PG 47.2 mmHg ESV 2D 23.6 cm3 AV VTI 72.6 cm LA Dimen 2D 3.7 2.3 - 4.0 cm LVOT Mean Jair 1.0 m/sec LVOT Diam 1.8 cm LVOT Mean PG 4.8 mmHg LVOT Peak Jair 1.5 m/sec LVOT Peak PG 8.8 mmHg LVOT VTI 37.6 cm MV Peak Jair 1.5 m/sec MV Peak PG 9.0 mmHg MV Mean Jair 0.9 m/sec MV Mean PG 3.5 mmHg MV VTI 34.0 cm Findings Left Ventricle: Normal left ventricular systolic function. Normal left ventricular cavity size. Moderate concentric left ventricular hypertrophy. Ejection fraction is visually estimated at 65 %. Tissue Doppler/Mitral Doppler indices are consistent with impaired relaxation (Stage I diastolic dysfunction). Right Ventricle: Normal right ventricular size. Normal right ventricular systolic function. Left Atrium: The left atrium is normal in size. Right Atrium: The right atrium is normal in size. Mitral Valve: Mild mitral leaflet calcification. Moderate mitral annular calcification. Trace mitral regurgitation. Aortic Valve: Moderate aortic stenosis. Aortic valve Max velocity 3.43 m/sec. Max PG 47.20 mmHg. Mean PG 29.10 mmHg. Aortic valve area 1.10 cm2. Aortic cusps appear moderately calcified. Tricuspid Valve: Normal appearance of the tricuspid valve. Unable to obtain RVSP due to minimal presence of tricuspid regurgitation. Pulmonic Valve: Normal pulmonic valve appearance. Pericardium: Normal pericardium with no significant pericardial effusion. Aorta: Normal aortic root. IVC: Normal size and normal respiratory collapse consistent with normal right atrial pressure. Conclusions 1.Normal left ventricular systolic function. Normal left ventricular cavity size. Moderate concentric left ventricular hypertrophy. Ejection fraction is visually estimated at 65 %. Tissue Doppler/Mitral Doppler indices are consistent with impaired relaxation (Stage I diastolic dysfunction). 2.The left atrium is normal in size. 3.Mild mitral leaflet calcification. Moderate mitral annular calcification. Trace mitral regurgitation. echolucency was seen in LA consistent wtih `shaodow`. 4.Moderate aortic stenosis. Aortic valve Max velocity 3.43 m/sec. Max PG 47.20 mmHg. Mean PG 29.10 mmHg. Aortic valve area 1.10 cm2. Aortic cusps appear moderately calcified. 5.Normal appearance of the tricuspid valve. Unable to obtain RVSP due to minimal presence of tricuspid regurgitation. Electronically Signed By: Keon Arnold 27-May-2016 11:12: Patient Name: MISAEL PACHECO Study Date: 27-May-2016 [id number]
[2016-05-27 13:39] LABS: THYROID STIMULATING HORMONE 0.826 MIU/L (0.465-4.680)
--- NOTE | 2016-05-27 16:58 | PN ---
Date/Time of Note Date/Time of Note DATE: 05/27/16 TIME: 16:56 Assessment/Plan VTE Prophylaxis VTE Prophylaxis Intervention: other Lines/Catheters IV Catheter Type (from [facility]): Peripheral IV Assessment/Plan Chief Complaint/Hosp Course ASSESSMENT AND PLAN 1. Frequent falls. This is likely secondary to her history of parkinsonian. Neurology has been consulted. We will obtain physical therapy, occupational therapy eval and treat if CT of the brain does not show any acute finding. 2. Recent left wrist fracture. The patient has been followed by Dr. Hodgson as outpatient. 3. Essential hypertension, well controlled on verapamil. 4. Dyslipidemia, continue fenofibrate and statin. 5. Diabetes mellitus. Continue metformin. 6. Stage I diastolic dysfunction. Stable. 7. Moderate aortic stenosis. Cardiology has been consulted We will continue to monitor patient closely. Further recommendations, management and treatment as per clinical course. The patient will obtain physical therapy and occupational therapy evaluate and treat. I strongly believe the patient will benefit from home health when she is discharged to continue physical therapy at her residence. She also may benefit from inpatient acute rehabilitation status post this course of hospitalization. Problems: Subjective 24 Hr Interval Summary Free Text/Dictation Patient denies of any chest pain or shortness of breath Waiting for physical therapy eval Tolerating oral intake Exam/Review of Systems Vital Signs Vitals Vital Signs Date Time Temp Pulse Resp B/P Pulse Ox O2 Delivery O2 Flow Rate FiO2 05/27/16 16:00 71 05/27/16 15:52 98.6 18 145/85 96 05/27/16 02:00 Room Air Intake and Output 05/26/16 05/26/16 05/27/16 15:00 23:00 07:00 Intake Total 540 ml Balance 540 ml Exam General: The patient is well-developed, Not in acute distress. HEENT: Atraumatic, normocephalic. The pupils are equal and round . Neck: Supple with full range of motion. Chest: Normal expansion of the thorax during inspiration Lungs: Clear to auscultation bilaterally Heart: Normal S1-S2, Regular rhythm and rate. 2/6 systolic murmur Abdomen: Soft , nontender, nondistended , bowel sounds are present. Extremities: Normal to inspection, no edema no cyanosis Neurologic: Normal mental status,The patient is awake, alert and oriented . Results Result Diagram: 05/27/16 0940 05/27/16 0940 Results 24 hrs Laboratory Tests Test 05/27/16 07:48 05/27/16 09:24 05/27/16 09:40 Bedside Glucose 116 Triglycerides Level 122 Cholesterol Level 200 LDL Cholesterol, Calculated 115 HDL Cholesterol 61 Cholesterol/HDL Ratio 3.2 White Blood Count 7.0 Red Blood Count 4.36 Hemoglobin 12.8 Hematocrit 40.6 Mean Corpuscular Volume 93.1 Mean Corpuscular Hemoglobin 29.4 Mean Corpuscular Hemoglobin Concent 31.5 L Red Cell Distribution Width 14.1 Platelet Count 169 Mean Platelet Volume 11.2 H Neutrophils % 74.4 Lymphocytes % 15.4 Monocytes % 7.0 Eosinophils % 2.3 Basophils % 0.6 Nucleated Red Blood Cells % 0.0 Neutrophils # 5.2 Lymphocytes # 1.1 Monocytes # 0.5 Eosinophils # 0.2 Basophils # 0.0 Nucleated Red Blood Cells # 0.0 Sodium Level 136 Potassium Level 4.0 Chloride Level 106 Carbon Dioxide Level 26 Anion Gap 8 Blood Urea Nitrogen 21 H Creatinine 0.68 Glucose Level 189 Calcium Level 9.4 Magnesium Level 1.7 Thyroid Stimulating Hormone (TSH) 0.826 Medications Medications Current Medications Dorzolamide/ Timolol (Cosopt) 1 drop BID BOTH EYES Last administered on 08:32; Admin Dose 1 DROP; Start 05/26/16 at 21:00 Fenofibrate 145 mg 145 mg DAILY PO Last administered on 05/27/16 10:18; Admin Dose 145 MG; Start 05/27/16 at 09:00 Potassium Chloride/Sodium Chloride (1/2 NS + KCl 20 Meq) 1,000 ml @ 60 mls/hr [id number] IV Last administered on 05/27/16 10:18; Admin Dose 60 MLS/HR; Start 05/26/16 at 17:51 Ondansetron HCl (Zofran Tab) 4 mg Q6H PRN PO NAUSEA AND/OR VOMITING; Start 05/26 at 18:00 Aspirin (Aspirin) 81 mg DAILY PO Last administered on 05/27/16 08:32; Admin Dose 81 MG; Start 05/27/16 at 09:00 Nitroglycerin (Nitroglycerin (Sl Tab) 0.4 Mg) 1 tab Q5M PRN SL CHEST PAIN; Start 05/26/16 at 18:00 Acetaminophen (Tylenol Tab) 650 mg Q6H PRN PO PAIN LEVEL 1-3 OR FEVER; Start at 18:00 Docusate Sodium (Colace) 100 mg Q12H PRN PO CONSTIPATION; Start 05/26/16 at 18: 00 Bisacodyl (Dulcolax) 5 mg DAILY PRN PO CONSTIPATION; Start 05/26/16 at 18:00 Carbidopa/Levodopa (Sinemet (10/ 100)) 1 tab TID PO Last administered on 13:03; Admin Dose 1 TAB; Start 05/26/16 at 21:00 Atorvastatin Calcium (Lipitor) 10 mg DAILY@21 PO Last administered on 05/26/16 23:12; Admin Dose 10 MG; Start 05/26/16 at 21:00 Benazepril HCl (Lotensin) 40 mg BID PO Last administered on 05/27/16 10:18; Admin Dose 40 MG; Start 05/26/16 at 21:00 Lorazepam (Ativan) 0.25 mg Q4 PRN PO AGITATION/ANXIETY Last administered on 05/26 23:12; Admin Dose 0.25 MG; Start 05/26/16 at 23:00 Miscellaneous Information 1 ea NOTE XX ; Start 05/27/16 at 09:30 Glucose (Glutose) 15 gm Q15M PRN PO DECREASED GLUCOSE; Start 05/27/16 at 09:30 Glucose (Glutose) 22.5 gm Q15M PRN PO DECREASED GLUCOSE; Start 05/27/16 at 09:30 Dextrose (D50w Syringe) 25 ml Q15M PRN IV DECREASED GLUCOSE; Start 05/27/16 at 09:30 Dextrose (D50w Syringe) 50 ml Q15M PRN IV DECREASED GLUCOSE; Start 05/27/16 at 09:30 Glucagon (Glucagen) 1 mg Q15M PRN IM DECREASED GLUCOSE; Start 05/27/16 at 09:30 Glucose (Glutose) 15 gm Q15M PRN BUCCAL DECREASED GLUCOSE; Start 05/27/16 at 09: 30 JOSEY PONCE MD May 27, 2016 16:58
--- NOTE | 2016-05-27 17:52 | PN ---
DATE: 05/27/2016 CARDIOLOGY FOLLOWUP SUBJECTIVE: The patient remained in sinus rhythm. No chest pain or pressure, no palpitations, want s to go home. MEDICATIONS: Reviewed as per medication reconciliation, personally reviewed. PHYSICAL EXAMINATION: VITAL SIGNS: Temperature 98. Blood pressure 145/65, respiration rate of 18, saturating 96%. HEENT: Normocephalic, atraumatic. Pupils are equal. CARDIOVASCULAR: Regular rate and rhythm, systolic ejection murmur. PULMONARY: With no wheezes heard. GASTROINTESTINAL: Soft, nontender. EXTREMITIES: No significant lower extremity edema. NEUROLOGIC: Awake, alert, oriented to person. PSYCHIATRIC: Appears to be calm and pleasant. LABORATORY: Sodium 132, potassium 4, BUN of 21, creatinine 0.8, glucose 189, LDL 115, HDL 61. TSH is 0.8. Echocardiogram was personally reviewed, showed normal LV size and systolic function. Eject ion fraction estimated about 65%. Aortic valve is calcified with moderate aortic stenosis, valve ar ea was cannulated of 1.1 with a mean gradient of 29 mmHg. ASSESSMENT AND PLAN: 1. Syncope versus fall. 2. Aortic stenosis appeared to be moderate. 3. Hypertension. 4. Diabetes. 5. Dyslipidemia. 6. Recurrent fall. RECOMMENDATIONS: We will continue with the current cardiac care. Follow with neurology recommendat ions. Follow up with ortho regarding the wrist fracture. Diabetic management will be continued. Dictated By: KEON MERRITT MD AV/AMBROSIO Conf#: [id number] DID#: [id number] CC: JOSEY PONCE MD;*End*
[2016-05-27] MEDS: ATORVASTATIN 10 MG TAB PO SCH (20:55)
[2016-05-28] VITALS (10 sets, daily range): BP systolic 107–178; BP diastolic 46–74; PULSE 53–87; RESP 18–20
[2016-05-28] MEDS: 1/2 NS + KCL 20 MEQ 1,000 ML IV SCH (04:48)
[2016-05-28] MEDS: CARBIDOPA/LEVODOPA (10/100) TAB PO SCH ×2 (08:53→12:05)
[2016-05-28] MEDS: FENOFIBRATE 145 MG TAB PO SCH (08:53)
[2016-05-28] MEDS: DORZOLAMIDE/TIMOLOL 10 ML OPH BOTH EYES SCH (08:53)
[2016-05-28] MEDS: metFORMIN 500 MG TAB PO SCH (08:53)
[2016-05-28] MEDS: ASPIRIN 81 MG TAB PO SCH (08:53)
[2016-05-28] MEDS: BENAZEPRIL 40 MG TAB PO SCH (08:53)
--- NOTE | 2016-05-28 11:36 | PDOCDIS ---
Discharge Instructions DIAGNOSIS Discharge Diagnosis: syncope CONDITION Patient Condition: Stable HOME CARE INSTRUCTIONS: Special Diet: CARDIAC, CARBOHYDRATE CONTROLLED OTHER ORDERS: Other Orders: 1. Take medications as per prescription. 2. Take a low-cholesterol, carbohydrate controlled diet. 3. Activities with help. 4. Follow-up with your neurologist as scheduled. Follow-up with your primary care physician in 2 weeks. KONG CHANEY NP May 28, 2016 11:36
--- NOTE | 2016-05-28 16:49 | DS ---
DATE OF ADMISSION: 05/26/2016 DATE OF DISCHARGE: 05/28/2016 FINAL DIAGNOSES: 1. Recurrent falls, most probably secondary to Parkinson's disease. 2. Recent left wrist fracture. Being followed by Dr. Hodgson as outpatient. 3. Essential hypertension. 4. Dyslipidemia. 5. Diabetes mellitus type 2. 6. Moderate aortic stenosis. 7. Stage I diastolic dysfunction. CONSULTATIONS: 1. Dr. Carlos Arnold, Cardiology. 2. Dr. Flor Ball, Neurology. HOSPITAL COURSE: This is an 85-year-old female with past medical history of Parkinson disease, anxiety, dyslipidemia, type 2 diabetes mellitus, and essential hypertension who recently had a mechanical fall and had a wrist fracture. She has since followed with Dr. Hodgson as outpatient. The patient was evaluated in Dr. Hodgson's office when she had the cast removed from her left arm. Meanwhile, the patient reported another fall; therefore, she was sent to [facility] Room for evaluation of frequent falls. The patient's brain CT scan showed mild generalized volume loss with mild nonspecific chronic microvascular ischemic disease, negative for any intracranial mass, hemorrhage, or midline shift. The patient's cervical spine CT showed no spine fracture or dislocation. Provided the patient's history of present illness and her comorbidities, a clinical decision was made to admit the patient to inpatient setting to have her further evaluated. The patient was admitted to inpatient telemetry floor. A cardiology and neurology consult was obtained on this patient. The patient's etiology of frequent falls was extensively evaluated. The patient's frequent falls are most probably secondary to her Parkinson disease. The patient's 2D echocardiogram showed preserved left ventricular ejection fraction with moderate aortic stenosis. The patient had no cardiac arrhythmias. Hence, it was concluded that the patient's frequent falls could be from her Parkinson disease. The patient was maintained on anti-parkinsonian medications. The patient was seen and evaluated by neurology. Neurology recommended no further neurology workup. The patient was seen and evaluated by physical therapy. Physical therapy recommended home health and 24-hour assistance. The patient has 24-hour assistance at home health. The patient has underlying essential hypertension. The patient was maintained on antihypertensives for the same. She has underlying dyslipidemia. The patient was maintained on fenofibrate and statins. The patient also has type 2 diabetes mellitus. The patient's blood sugars were well controlled. The patient was maintained on metformin. The patient was cleared by consultants to be discharged home. The patient does not require any further workup. The patient needs outpatient home health evaluation and 24-hour assistance. DISPOSITION AND PLAN: The patient will be discharged home today with home health. The patient will take a low-cholesterol, carbohydrate controlled diet. Activities will be with help. The patient was instructed to follow up with her neurologist as scheduled. She was instructed to follow up with her primary care physician in 2 weeks. The patient verbalized understanding of her discharge instructions. CONDITION AT DISCHARGE: Stable. DISCHARGE MEDICATIONS: 1. Carbidopa/levodopa 10/100, one tablet p.o. t.i.d. 2. Clonazepam 1 mg p.o. daily p.r.n. anxiety. 3. Cosopt 1 drop to both eyes b.i.d. 4. Fenofibrate 145 mg p.o. daily. 5. Linzess 145 mcg p.o. b.i.d. 6. Metformin 500 mg p.o. with breakfast and dinner. 7. Pravastatin 20 mg p.o. at bedtime. 8. Ramipril 10 mg p.o. b.i.d. PERTINENT LABORATORY AND DIAGNOSTIC DATA: 1. 2D echocardiogram: Ejection fraction of 65% with stage I diastolic dysfunction. Moderate aortic stenosis. Aortic valve maximal velocity of 3.4 m/ sec. Aortic valve area 1.10 cm2. 2. Carotid Doppler study: No evidence for hemodynamically significant stenosis. Antegrade flow seen within the vertebral arteries bilaterally. 3. Thoracic spine CT: Chronic appearing moderate T11 and minimal T5 compression deformities. No definite acute thoracic spine fracture or dislocation. Thoracic spondylosis. Osteopenia. 4. Lumbar spine CT: No lumbar spine fracture or dislocation. Lumbar spondylosis with mild dextroconvex lumbar scoliosis. Multilevel foraminal narrowing outlined. Osteopenia. 5. Cervical spine CT: No cervical spine fracture or dislocation. Cervical spondylosis with multilevel mild central canal stenosis and multilevel foraminal narrowing. Osteopenia. 6. Brain CT scan: Moderate generalized cerebral and mild generalized cerebellar volume loss and mild nonspecific chronic small microvascular ischemic disease. Negative for intracranial masses, hemorrhages, or midline shift. Chronic and acute right maxillary sinusitis, right mastoiditis. 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 7. Latest CBC: WBC 7.0, hemoglobin 12.9, hematocrit 40.6, platelet count 169. 8. Latest BMP. Sodium 136, potassium 4.0, chloride 106, carbon dioxide 26, anion gap 8, BUN 21, creatinine 0.6, glucose 199, calcium 9.4, magnesium 1.7. 9. Fasting lipid panel: Triglycerides 122, total cholesterol 200, LDL 115, AST of 61. At this time, I would like to thank all the consultants for seeing the patient and providing clinical recommendations. The case and management of this patient was fully discussed with Dr. Jolly. Approximately 35 minutes was spent on coordinating the discharge on this patient. KONG JOLLY MD AM/NTS Conf#: [id number] DID#: [id number] MTDD
--- NOTE | 2016-05-29 08:35 | PN ---
DATE: 05/28/2016 CARDIOLOGY FOLLOWUP SUBJECTIVE: The patient remains in sinus rhythm, no evidence of arrhythmia, no No chest pain or pressure. He has been confused intermittently overnight, trying to get out of bed. MEDICATIONS: Reviewed as per medication reconciliation, personally reviewed. PHYSICAL EXAMINATION: VITAL SIGNS: Temperature 98, heart rate of 66, blood pressure 150/56, respiration rate of 20, satur ating 98%. HEENT: Normocephalic, atraumatic. Pupils equal, round. CARDIOVASCULAR: Regular rate and rhythm, systolic ejection murmur. PULMONARY: No wheezes heard. GASTROINTESTINAL: Soft, nontender. EXTREMITIES: With no significant lower extremity edema. NEUROLOGIC: Awake and alert. PSYCHIATRIC: Calm now. LABORATORY: Not done this morning. ASSESSMENT AND PLAN: 1. Syncope versus fall. 2. Aortic stenosis, appears to be moderate disease. 3. Hypertension. 4. Diabetes 5. Dyslipidemia. RECOMMENDATIONS: We will continue with the current cardiac care. Diabetic control as per internal medicine. Outpatient followup with orthopedics. Discharge planning when okay with internal medicin e. Dictated By: KEON MERRITT MD AV/AMBROSIO Conf#: [id number] DID#: [id number]
== END 2016-05-28 16:28 | disposition home or self-care (01) ==
LOC: E/R 12:48 → MS4 15:51
PROVIDERS: ADMIT Family Medicine; ATTEND Family Medicine
DX: S62.102D Fracture of unspecified carpal bone, left wrist, subsequent encounter for fracture with routine healing (principal); G20 Parkinson's disease; I10 Essential (primary) hypertension; E78.5 Hyperlipidemia, unspecified; E11.9 Type 2 diabetes mellitus without complications; Z79.84 Long term (current) use of oral hypoglycemic drugs; I35.0 Nonrheumatic aortic (valve) stenosis; I51.9 Heart disease, unspecified; M54.9 Dorsalgia, unspecified; M54.2 Cervicalgia; F41.9 Anxiety disorder, unspecified; R41.3 Other amnesia; Z91.81 History of falling; W19.XXXD Unspecified fall, subsequent encounter
CPT/HCPCS: 70450; 72125; 72128; 72131; 80048; 80061; 82962; 83735; 84443; 84484; 85025; 85610; 85730; 93005; 93306; 93880; 97162; 99285; G0378; G8978; G8979; J3480